=== PATIENT | female | born 1950 | race Caucasian/White ===

== ENCOUNTER → 2021-01-16 | Outpatient (CLI) | payer OTHER ==
[~2021-01-16] MED LIST: ATORVASTATIN CA80 MG PO; AUGMENTIN 875-1 EACH PO; BENTYL 20MG TAB20 MG PO; CAPTOPRIL25 MG PO; CLARITIN10 M1 PO; CYANOCOBAL1000 MCG/1 INJ; ECOTRIN81 MG PO; LANTUS SOL100 UNIT/1 SQ; LOPRESSOR100 MG PO; LOPRESSOR50 MG PO; MAGOX 400400 MG PO; NORVASC10 MG PO; NOVOLOG FL100 UNIT/1 SQ; PROTONIX40 MG PO; TRADJENTA5 MG PO; VITAMIN D32000 UNI1 PO; WELCHOL 625 MG625 MG PO; ZOFRAN ODT 4 MG4 MG SL
== END ==
LOC: LAB 11:02
PROVIDERS: Internal Medicine Nephrology
DX: N18.30 Chronic kidney disease, stage 3 unspecified (principal)
CPT/HCPCS: 80053; 82570; 84156

== ENCOUNTER → 2021-05-08 | Outpatient (CLI) | payer OTHER ==
[2021-05-08 12:40] LABS: HEMOGLOBIN 11.4 gm/dl (12.3-15.3); RED BLOOD COUNT 3.78 M/UL (4.00-5.10); WHITE BLOOD COUNT 7.8 K/UL (4.5-11.0)
== END ==
LOC: LAB 12:03
PROVIDERS: Internal Medicine Nephrology
DX: N18.32 Chronic kidney disease, stage 3b (principal); N25.81 Secondary hyperparathyroidism of renal origin; E83.42 Hypomagnesemia
CPT/HCPCS: 80053; 82570; 82728; 83540; 83550; 83735; 83970; 84100; 84156; 85025

== ENCOUNTER → 2021-06-11 | Outpatient (CLI) | payer OTHER | LOC: LAB 13:17 | PROVIDERS: Internal Medicine Nephrology | DX: N17.9 Acute kidney failure, unspecified (principal) | CPT/HCPCS: 36415; 80048 ==

== ENCOUNTER → 2021-08-05 | Outpatient (CLI) | payer OTHER ==
[2021-08-05 13:20] LABS: HEMOGLOBIN 11.6 gm/dl (12.3-15.3); RED BLOOD COUNT 3.87 M/UL (4.00-5.10); WHITE BLOOD COUNT 9.7 K/UL (4.5-11.0)
[2021-08-06 08:13] LABS: A/G RATIO 1.5 (1.2-2.2); BILIRUBIN, TOTAL 0.3 mg/dL (0.0-1.2); CALCIUM, SERUM 9.2 mg/dL (8.7-10.3); CREATININE, SERUM 1.66 mg/dL (0.57-1.00); GLOBULIN, TOTAL 2.7 g/dL (1.5-4.5); MAGNESIUM 2.2 mg/dL (1.6-2.3); POTASSIUM, SERUM 4.7 mmol/L (3.5-5.2); PROTEIN, TOTAL, SERUM 6.7 g/dL (6.0-8.5)
== END ==
LOC: LAB 12:19
PROVIDERS: Internal Medicine Nephrology
DX: N18.9 Chronic kidney disease, unspecified (principal); D63.1 Anemia in chronic kidney disease; E83.42 Hypomagnesemia; N25.81 Secondary hyperparathyroidism of renal origin
CPT/HCPCS: 36415; 80053; 82570; 82728; 83540; 83550; 83735; 83970; 84100; 84156; 85027

== ENCOUNTER → 2022-02-21 | Outpatient (CLI) | payer OTHER | LOC: EXRD 11:15 | DX: M81.0 Age-related osteoporosis without current pathological fracture (principal); Z00.01 Encounter for general adult medical examination with abnormal findings | CPT/HCPCS: 77080 ==